=== PATIENT | female | born 1985 | race Caucasian/White ===

== ENCOUNTER 2016-06-25 05:11 | Emergency (ER) | payer BC ==
[~2016-06-25 05:11] MED LIST: ALPRAZOLAM PO; BACITRACIN500/UDPK1 TOP; BACTRIM DS TABL1 TA1 PO; BCP; BIRTH CONTROL PILL PO; CIPRO HC OTIC S10 ML OT; KEFLEX500 MG PO; LORTAB 10-5001 EACH; LORTAB 7.51 TAB 7.5/ PO; MAGIC MOUTHWASH PO; MUCINEX D ER T1 EAC1 PO; NAPROSYN500 MG PO; NO MEDICATIONS; ORTHO TRI-7 DAYS X; PERCOCET 5-3251 TAB PO; TYLOX1 CAP 5/50 PO; ZITHROMAX PO; ZYRTEC PO; [UNRECOGNIZED DRUG - OTHER]
== END 2016-06-25 05:31 | disposition home or self-care (01) ==
LOC: SED 05:11
DX: L02.01 Cutaneous abscess of face (principal); Z86.14 Personal history of Methicillin resistant Staphylococcus aureus infection
CPT/HCPCS: 99282